=== PATIENT | female | born 1965 | race Caucasian/White ===

== ENCOUNTER → 2023-10-30 13:58 | Outpatient (REF) | payer BC, SELFPAY | LOC: WDC 13:58 | PROVIDERS: ATTENDING PHYSICIAN Obstetrics & Gynecology; FAMILY PHYSICIAN Physician Assistant Medical | DX: Z12.31 Encounter for screening mammogram for malignant neoplasm of breast (principal) | CPT/HCPCS: 77063; 77067 ==

== ENCOUNTER 2024-02-19 12:37 | Emergency (ER) | payer BC, SELFPAY ==
[2024-02-19 12:42] VITALS: BP 154/90
--- NOTE | 2024-02-19 12:47 | ED.GENMED ---
History of Present Illness
General
Chief Complaint: Musculo-Skeletal Complaint
Time Seen by Provider: 02/19/24 12:45
History of Present Illness
History of Present Illness:
TIME OF INITIAL ENCOUNTER: 12:45 PM
HPI: Patient presents due to right scapular pain. This started 2 mornings ago and she woke up with this severe pain. She was able to go to work that day but pain has persistently worsened. Her primary placed her on naproxen and Flexeril. She was
able to sleep a little bit more yesterday with the Flexeril. She did not take the Flexeril today. She now describes paresthesias down the right upper extremity but has no motor loss. She states that she chronically has some decreased active range
of motion at the neck which may be a contributing factor.
EXAM:
GENERAL: Well appearing but in moderate distress as she has trouble finding a comfortable position regarding the right upper extremity
HEENT: Moist oral mucosa
NECK: There is decreased active range of motion into right rotation
NEUROLOGIC: Excellent strength all extremities, no obvious coordination deficits, she has excellent strength in a radial, median, and ulnar nerve distribution to the right upper extremity
PSYCHIATRIC: Appropriate mental status, normal insight and judgement
EXTREMITIES: Nontender, no edema, moves all extremities equally, excellent radial pulse to the right upper extremity
SKIN: No rash, no lesions, no evidence for cellulitis or shingles
NUMBER AND COMPLEXITY OF PROBLEMS ADDRESSED AT THE ENCOUNTER
� Chronic conditions affecting care: Former smoker, GERD
� Acute Exacerbation and/or Progression of Chronic Illness: This is an acute problem
� Differential Diagnosis includes: Cervical radiculopathy, periscapular strain of the muscle, peripheral neuropathy
AMOUNT AND/OR COMPLEXITY OF DATA TO BE REVIEWED AND ANALYZED
� I performed an independent evaluation of and my interpretation is:
EKG:
CT:
X-rays:
Laboratory Studies:
Other:
� Review of other/old records: The patient was here in 2022 with epigastric pain and had an endoscopy
� Clinical information was obtained by an independent historian: None needed
� Prescriptions/Medications Considered but not given:
� Further testing considered but not performed: As there has been no direct trauma, recommend against imaging; given normal strength no clear indication for MRI at this time
RISK OF COMPLICATIONS AND/OR MORBIDITY OR MORTALITY OF PATIENT MANAGEMENT
� Social determinants of health affecting care: Lives at home
� Discussion with other providers:
� Escalation of care including admission/observation vs risk of discharge considered: Considered sling however the patient states that this does not necessarily make it feel any better and often time makes that position feel
worse. Suspect cervical radiculopathy�will try to add steroids and gabapentin. I have also given contact information for orthopedics.
ANY OTHER UPDATES:
Past History
Past History
ED Past Medical History: GERD and Psychiatric (anxiety)
ED Past Surgical History: Appendectomy, Gynecological (hysterectomy), Orthopedic and Tonsilectomy
Social History
Tobacco: Former smoker
Alcohol: Occasional
Drug: None
Personal:
Living: with family
Employment: Employed
Phy Exam
Physical Exam
Physical Exam:
See HPI
Course
Orders/Labs/Results
Orders:
Orders
02/19/24 13:01
Ketorolac [Toradol] 30 mg IM NOW STA
Prednisone [Deltasone] 50 mg PO NOW STA
Vital Signs
Initial and Last Documented VS:
Initial Vital Signs
Temp Pulse Resp BP Pulse Ox
98.1 F 77 16 154/90 96
02/19/24 12:42 02/19/24 12:42 02/19/24 12:42 02/19/24 12:42 02/19/24 12:42
Last Documented Vital Signs
Temp Pulse Resp BP Pulse Ox
98.1 F 77 16 154/90 96
02/19/24 12:42 02/19/24 12:42 02/19/24 12:42 02/19/24 12:42 02/19/24 12:42
*Critical Care Note
Total Time (30-74mins, 75-104mins- exclusive of procedures): Not Applicable
ED Attending Note
-
Portions of this chart may have been created with voice recognition software.� Occasional wrong word or��sound alike� substitutions may have occurred due to the inherent limitations of voice recognition software.
Discharge Plan
Departure
Patient Disposition: Home (Routine Discharge)
Date of Disposition: 02/19/24
Time of Disposition: 13:02
Patient with high blood pressure during this ER visit?: Yes
Discharge Problem:
Cervical radiculopathy
Prescriptions:
New
gabapentin 300 mg capsule
300 mg PO TID Qty: 21 0RF
prednisone 50 mg tablet
50 mg PO DAILY Qty: 4 0RF
No Action
penicillin V potassium 500 MG tablet
500 mg PO TID 10 Days Qty: 30 0RF
Referrals:
Lupe Li I., DO [Active] - Next open appointment
Activity Restrictions/Additional Instructions:
Your symptoms very likely could be related to a 'cervical radiculopathy' meaning pinched nerve coming from the neck leading to paresthesias down the arm. To help decrease inflammation, we can try a short course of steroids. I generally do not
recommend using steroids and naproxen at the same time as taking 2 together can be extremely irritating to the stomach. You could use Flexeril which may help you sleep. Gabapentin/Neurontin is also somewhat sedating. I recommend to starting with
once a day dosing of the gabapentin and gradually work up to 3 times per day if needed. I am also giving you the contact information for local orthopedist to follow-up with
Interventions
Interventions:
*Risk Screen - Suicide Last Done: 02/19/24 12:44
*Neglect/Abuse Screening Last Done: 02/19/24 12:44
ED-Musculoskeletal Assessment Last Done: 02/19/24 12:51
Discharge Date and Time
Print Language: ICELANDIC
[2024-02-19] MEDS: DELTASONE 50 MG PO (13:09)
[2024-02-19] MEDS: TORADOL 30 MG IM (13:10)
== END 2024-02-19 13:20 | disposition home or self-care (01) ==
LOC: EMR 12:37
PROVIDERS: EMERGENCY PHYSICIAN Emergency Medicine; FAMILY PHYSICIAN Physician Assistant Medical
DX: M54.12 Radiculopathy, cervical region (principal); K21.9 Gastro-esophageal reflux disease without esophagitis; Z87.891 Personal history of nicotine dependence
CPT/HCPCS: 96372; 99284

== ENCOUNTER → 2024-11-01 11:38 | Outpatient (REF) | payer BC, SELFPAY | LOC: WDC 11:38 | PROVIDERS: ATTENDING PHYSICIAN Obstetrics & Gynecology; FAMILY PHYSICIAN Physician Assistant Medical | DX: Z12.31 Encounter for screening mammogram for malignant neoplasm of breast (principal) | CPT/HCPCS: 77063; 77067 ==